=== PATIENT | female | born 1955 | race Caucasian/White ===

== ENCOUNTER 2019-12-12 20:21 | Emergency (ER) | payer OTHER ==
[~2019-12-12] VITALS: Ht 160 cm; Wt 63.5 kg
[~2019-12-12 20:21] MED LIST: ALBU90OI; HYDACE5 PO; LEVSOD75; NAPR220; NAPR500 PO
[2019-12-12] MEDS ORDERED: BENADRYL25 MG PO (22:11)
[2019-12-12] MEDS ORDERED: VITAMIN D33000 UNIT PO (22:11)
[2019-12-12 22:50] LABS: Source, Urine Clean Catch
[2019-12-12 22:52] LABS: Bilirubin, Urine Neg (Neg); Blood, Urine Neg (Neg); Glucose Qualitative, Urine Neg (Neg); Ketones, Urine Neg (Neg); Leukocyte Esterase, Urine 1+ (Neg); Nitrite, Urine Neg (Neg); Protein, Urine Neg (Neg); Specific Gravity, Urine 1.005 (1.003-1.022); Urobilinogen, Urine NORM (Normal)
[2019-12-12 22:58] LABS: Appearance, Urine Clear (Clear); Bacteria Not Seen /hpf; Color, Urine Pale Yellow (P-Yellow); Red Blood Cells, Urine Not Seen /hpf (0-2); Squamous Epithelial Cells Few /hpf (Few); White Blood Cells, Urine 0-2 /hpf (0-5)
== END 2019-12-13 01:21 | disposition home or self-care (01) ==
LOC: ER 20:21
PROVIDERS: Emergency Medicine
DX: F19.10 Other psychoactive substance abuse, uncomplicated (principal); Z88.5 Allergy status to narcotic agent; Z79.899 Other long term (current) drug therapy
CPT/HCPCS: 51798; 81001; 87086; 99283-25